=== PATIENT | male | born 1970 | race Caucasian/White ===

== ENCOUNTER → 2017-10-15 | Outpatient (CLI) | payer OTHER | END | disposition home or self-care (01) | LOC: RAD 09:35 | DX: R05 Cough (principal) ==

== ENCOUNTER 2017-10-16 09:09 | Outpatient (CLI) | payer OTHER | END 2017-10-16 09:19 | disposition home or self-care (01) | LOC: SONOGRAMA 09:09 → MAMO-SONO 10:45 | DX: R10.13 Epigastric pain (principal) ==

== ENCOUNTER → 2018-02-11 | Emergency (ER) | payer OTHER ==
[~2018-02-11] VITALS: Ht 185.4 cm; Wt 79.4 kg
== END | disposition home or self-care (01) ==
LOC: ER 17:23
DX: R53.81 Other malaise (principal); G57.83 Other specified mononeuropathies of bilateral lower limbs

== ENCOUNTER 2018-02-28 09:10 | Outpatient (CLI) | payer OTHER | END 2018-02-28 09:24 | disposition home or self-care (01) | LOC: SONOGRAMA 09:10 | DX: E03.8 Other specified hypothyroidism (principal); E04.1 Nontoxic single thyroid nodule ==

== ENCOUNTER 2018-03-31 07:41 | Outpatient (CLI) | payer OTHER | END 2018-03-31 07:43 | disposition home or self-care (01) | LOC: SONOGRAMA 07:41 | DX: E04.1 Nontoxic single thyroid nodule (principal) ==

== ENCOUNTER 2024-01-17 11:09 | Outpatient (CLI) | payer OTHER | END 2024-01-17 11:21 | disposition home or self-care (01) | LOC: SONOGRAMA 11:09 | PROVIDERS: ATTEND Internal Medicine | DX: E03.9 Hypothyroidism, unspecified (principal) ==

== ENCOUNTER 2025-04-13 14:03 | Outpatient (CLI) | payer OTHER | END 2025-04-13 14:08 | disposition home or self-care (01) | LOC: SONOGRAMA 14:03 | PROVIDERS: ATTEND Internal Medicine | DX: E04.9 Nontoxic goiter, unspecified (principal) ==